=== PATIENT | female | born 1940 | race Caucasian/White ===

== ENCOUNTER 2021-07-22 19:41 | Emergency (ER) | payer OTHER ==
[~2021-07-22] VITALS: Ht 154.9 cm; Wt 77.1 kg
--- NOTE | ~2021-07-22 | EMS ---
[place] [id number] EMS Patient Care Report Name: AYAN OSMAN Room #: PRE M.R.#: [id number] Admission: Attend Phys: Discharge: Date of : 42 Report #: [id number] THIS REPORT FOR: //name// Report Transmitted: 07/22/2021 19:08 EMS Care Summary [place], [place]/[facility] Incident [id number] @ 07/22/2021 18:50 Incident Location [address] [place] [address] Patient AYAN RODRIGUEZ Female, 80 Years 1940 Patient Address [address] [place] [address] Patient History Chronic Obstructive Pulmonary Disease (COPD),Hypothyroidism, Patient Allergies Penicillin allergy,Morphine, Patient Medications Oxycodone, Spironolactone, Metoprolol, Levothyroxine, Tamsulosin, Gabapentin, Metformin, Atorvastatin, Allopurinol, Mirtazapine, Lorazepam, Albuterol, Xarelto, Furosemide, Chief Complaint LOWER BACK/ BOTTOM PAIN Disposition Transported No Lights/Leo Dispatch [place] [address] EMS Patient Care Report Name: AYAN OSMAN Room #: [facility].Lynn.#: [id number] Admission: Attend Phys: Discharge: Date of : 42 Report #: [id number] UPON ARRIVAL PT SUPINE ON GROUND CONSCIOUS AND ALERT. PT HAD TRIPPED ON A CORD AND LOST HER BALANCE FALLING BACKWARDS. PT STATES SHE LANDED ON HER BOTTOM FIRST AND THEN FELL BACK AND HIT HER HEAD. PT DENIES ANY LOC. PT C/O LOWER BACK PAIN ON MOVEMENT. PT STATES SHE HAS A LITTLE PAIN TO THE BACK OF HER HEAD ONLY WHEN PALPATED AND WHEN ASKED IF SHE HAS ANY NECK PAIN SHE SAYS BARELY. C-COLLAR APPLIED AND PT CARRIED TO COT VIA FOUNDRY MOLDER. PT TRANSPORTED. DURING TRANSPORT PT STATES SHE HAS TROUBLE BREATHING WITH THE C-COLLAR AND AND IT IS CAUSING HER MORE PAIN WITH IT ON. PT ADVISED IT IS BEST IF IT STAYS ON TO PREVENT ANY FURTHER INJURY. PT STATES SHE WANTS IT TAKEN OFF AND THAT HER NECK FEELS FINE. TRY TO CONVINCE PT TO LEAVE IT ON AGAIN BUT SHE WANTS IT OFF SO IT IT REMOVED. Initial Vitals @19:26P: 93,SpO2: 82, @19:31P: 95,SpO2: 84, @19:22P: 87,SpO2: 82, @19:29P: 95,SpO2: 82, @19:14SpO2: 95, @19:15P: 90,R: 20,BP: 109/57,Pain: 8/10,GCS: 15,SpO2: 98,Revised Trauma: 12, @19:33P: 91,R: 20,BP: 112/59,GCS: 15,SpO2: 98,Revised Trauma: 12, Assessments @19:07MENTAL:Person Oriented,Place Oriented,Time Oriented,Event Oriented,SKIN:HEENT:Head/Face: No Abnormalities,Neck/Airway: No Abnormalities,LUNG SOUNDS:General: No Abnormalities,ABDOMEN:General: No Abnormalities,PELVIS//GI:No Abnormalities,EXTREMITIES:Left Arm: No Abnormalities,Right Arm: No Abnormalities,Left Leg: No Abnormalities,Right Leg: No Abnormalities,PULSE:Radial: 2+ Normal,NEURO:No Abnormalities, Impression Injury of Lower Back Procedures @19:07ALS AssessmentResponse: UnchangedSucceeded@19:10Spinal Motion RestrictionResponse: WorseSucceeded@19:153-Lead ECGResponse: UnchangedSucceeded Timeline 18:48,Call Received 18:48,Dispatch Notified 18:50,Dispatched 18:52,En Route 19:04,On Scene 19:06,At Patient 19:07,ALS Assessment,Response: UnchangedSucceeded, 19:10,Spinal Motion Restriction,Response: WorseSucceeded, 19:14,BP: / M,PULSE: ,RR: R,SPO2: 95 Ox,ETCO2: ,BG: ,PAIN: ,GCS: , 19:15,3-Lead ECG,Response: UnchangedSucceeded, [facility] [address] [place] [address] EMS Patient Care Report Name: AYAN OSMAN E Room #: [facility] M.R.#: [id number] Admission: Attend Phys: Discharge: Date of : 42 Report #: [id number] 19:15,BP: 109/57 M,PULSE: 90,RR: 20 R,SPO2: 98 Ox,ETCO2: ,BG: ,PAIN: 8,GCS: 15, 19:18,Depart Scene 19:22,BP: / M,PULSE: 87,RR: R,SPO2: 82 Ox,ETCO2: ,BG: ,PAIN: ,GCS: , 19:26,BP: / M,PULSE: 93,RR: R,SPO2: 82 Ox,ETCO2: ,BG: ,PAIN: ,GCS: , 19:29,BP: / M,PULSE: 95,RR: R,SPO2: 82 Ox,ETCO2: ,BG: ,PAIN: ,GCS: , 19:31,BP: / M,PULSE: 95,RR: R,SPO2: 84 Ox,ETCO2: ,BG: ,PAIN: ,GCS: , 19:33,BP: 112/59 M,PULSE: 91,RR: 20 R,SPO2: 98 Ox,ETCO2: ,BG: ,PAIN: ,GCS: 15, 19:35,At Destination 19:54,Call Closed Disclaimer v1.1 Copyright 2020 [employer] This EMS Care Summary contains data elements from the applicable legal record (which may be displayed differently). It is designed to provide pertinent information for the following purposes: continuity of care, clinical quality, and state data reporting. The complete legal record is available to ED staff and administrators of the receiving hospital in [employer]'s Patient Tracker. All data is provided "as is."
[2021-07-22 19:59] LABS: ABSOLUTE NEUTROPHILS 8.1 thou/uL (1.4-8.2); BASOPHILS 0.6 % (0.0-2.0); EOSINOPHILS 0.6 % (0.0-3.0); HEMATOCRIT 45.6 % (37.0-47.0); HEMOGLOBIN 15.1 gm/dL (12.0-15.0); LYMPHOCYTES 9.8 % (24.0-44.0); MCH 33.6 pg (26.0-34.0); MCHC 33.2 g/dL (28.0-37.0); MCV 101.3 fL (80.0-100.0); MONOCYTES 9.5 % (1.0-8.0); PLATELET COUNT 119 thou/uL (150-400); POLYS 79.5 % (36.0-66.0); RDW 14.2 % (10.5-14.5); WBC 10.2 thou/uL (4.0-11.0)
[2021-07-22 20:09] LABS: CALCIUM 8.4 mg/dL (8.5-10.1); CREATININE 1.5 mg/dL (0.6-1.0); POTASSIUM 4.6 mmol/L (3.5-5.1)
[2021-07-22 21:41] LABS: URINE BILIRUBIN NEGATIVE (Negative); URINE BLOOD 1+ (Negative); URINE CLARITY CLEAR; URINE COLOR YELLOW; URINE GLUCOSE-RANDOM* NEGATIVE (Negative); URINE KETONES NEGATIVE (Negative); URINE LEUKOCYTES-REFLEX NEGATIVE (Negative); URINE NITRITE-REFLEX NEGATIVE (Negative); URINE PROTEIN (DIPSTICK) NEGATIVE (Negative); URINE UROBILINOGEN 0.2 E.U./dl (0.2-1.0)
[2021-07-22 21:58] LABS: BACTERIA-REFLEX 1-9 Few /HPF (None Seen); CASTS None Seen /LPF (None Seen); CRYSTALS None Seen /LPF (None Seen); MUCUS 0-3 Light strn/LPF (None Seen); SQUAMOUS 0-3 Few /LPF (0-3); URINE RBC 3-10 Few /HPF (NONE SEEN); URINE WBC-REFLEX 0-5 Rare /HPF (0-5)
[2021-07-23 01:05] VITALS: BP 112/54
== END 2021-07-23 01:05 | disposition home or self-care (01) ==
LOC: ER 19:41
PROVIDERS: Nurse Practitioner
DX: S00.93XA Contusion of unspecified part of head, initial encounter (principal); M54.50 Low back pain, unspecified; Z86.718 Personal history of other venous thrombosis and embolism; W10.9XXA Fall (on) (from) unspecified stairs and steps, initial encounter; Y93.89 Activity, other specified; Y92.89 Other specified places as the place of occurrence of the external cause; Y99.8 Other external cause status

== ENCOUNTER 2021-07-27 11:41 | Inpatient (IN) | payer OTHER ==
[~2021-07-27] VITALS: Ht 152.4 cm; Wt 73.6 kg
--- NOTE | ~2021-07-27 | EMS ---
[address] [address] EMS Patient Care Report Name: AYAN RODRIGUEZ Room #: REG ANGELA Razo#: [id number] Admission: 07/27/21 Attend Phys: Discharge: Date of : 42 Report #: [id number] THIS REPORT FOR: //name// Report Transmitted: 07/27/2021 12:49 EMS Care Summary [place], [place]/[facility] Incident [id number] @ 07/27/2021 11:02 Incident Location [address] [place], [place] [id number] Patient AYAN RODRIGUEZ Female, 80 Years 1940 Patient Address [address] [place], [place] [id number] Patient History Chronic Obstructive Pulmonary Disease (COPD),Hypothyroidism, Patient Allergies Penicillin allergy,Morphine, Patient Medications Levothyroxine, Atorvastatin, Lorazepam, Albuterol, Tamsulosin, Metformin, Allopurinol, Metoprolol, Gabapentin, Oxycodone, Furosemide, Xarelto, Mirtazapine, Spironolactone, Chief Complaint increased confusion Disposition Transported No Lights/[place] Dispatch Reason Breathing Problem Transported To [address] [address] EMS Patient Care Report Name: AYAN RODRIGUEZ Room #: REG ANGELA Razo#: [id number] Admission: 07/27/21 Attend Phys: Discharge: Date of : 42 Report #: [id number] pt found seated in bed, alert, mildly confused, on home . she was dx w/ Covid 4 days ago. the nurse saw her today and recommend she be seen in the ER for increased confusion, weakness and work of breathing. the pt does not want to go to hosp but finally agrees when told her family is requesting the transport. pt c/o general aches and pains. she is able to stand and pivot to cot. staff reports pt is afebrile. VS, transport w/o change. Initial Vitals @11:24P: 80,R: 20,BP: 130/80,Pain: 6/10,GCS: 14,Glucose: 122,SpO2: 95,Revised Trauma: 12, Assessments @11:19MENTAL:Confused,Person Oriented,Place Oriented,SKIN:No Abnormalities,HEENT:Head/Face: No Abnormalities,LUNG SOUNDS:ABDOMEN:PELVIS//GI:EXTREMITIES:Right Leg: Other,Left Arm: Other,Left Leg: Other,Right Arm: Other,PULSE:NEURO:Other, Impression Confusion/Delirium Procedures @11:19 ALS Assessment Response: Unchanged @11:22 Stretcher Response: Unchanged @PTAOxygen FlowRate: 5 Device: Nasal Cannula (NC) Response: Unchanged @11:24 3-Lead ECG Response: Unchanged Timeline SOUNDING DEVICE OPERATOR,Oxygen FlowRate: 5 Device: Nasal Cannula (NC) Response: Unchanged 11:00,Call Received 11:00,Dispatch Notified 11:02,Dispatched 11:03,En Route 11:16,On Scene 11:19,At Patient 11:19,ALS Assessment,Response: Unchanged 11:22,Stretcher,Response: Unchanged 11:24,BP: 130/80 M,PULSE: 80,RR: 20 R,SPO2: 95 Ox,ETCO2: ,B,PAIN: 6,GCS: 14, 11:24,3-Lead ECG,Response: Unchanged 11:25,Depart Scene 11:38,At Destination 12:03,Call Closed Disclaimer v1.1 Copyright 2020 [employer] [facility] [address] [place] [address] EMS Patient Care Report Name: AYAN RODRIGUEZ Room #: REG ANGELA Razo#: [id number] Admission: 07/27/21 Attend Phys: Discharge: Date of : 42 Report #: [id number] This EMS Care Summary contains data elements from the applicable legal record (which may be displayed differently). It is designed to provide pertinent information for the following purposes: continuity of care, clinical quality, and state data reporting. The complete legal record is available to ED staff and administrators of the receiving hospital in [facility]'s Patient Tracker. All data is provided "as is."
[2021-07-27 11:45] VITALS: BP 125/65
[2021-07-27 12:32] LABS: BE(vivo) 2.4 mmol/L (-2 to +3); HCO3 25.8 mmol/L (22.0-26.0); PCO2 36.3 mmHg (35.0-45.0); PO2 67.9 mmHg (80.0-100.0); sO2 94.7 % (92.0-98.0)
[2021-07-27 12:34] LABS: ABSOLUTE NEUTROPHILS 6.7 thou/uL (1.4-8.2); BASOPHILS 0.4 % (0.0-2.0); HEMATOCRIT 48.4 % (37.0-47.0); LYMPHOCYTES 8.1 % (24.0-44.0); MCH 33.6 pg (26.0-34.0); MCHC 33.1 g/dL (28.0-37.0); MCV 101.3 fL (80.0-100.0); PLATELET COUNT 136 thou/uL (150-400); POLYS 84.5 % (36.0-66.0); RBC 4.78 mil/uL (4.20-5.00); RDW 14.6 % (10.5-14.5); WBC 7.9 thou/uL (4.0-11.0)
[2021-07-27 12:35] LABS: URINE BILIRUBIN NEGATIVE (Negative); URINE BLOOD TRACE (Negative); URINE CLARITY CLEAR; URINE COLOR YELLOW; URINE GLUCOSE-RANDOM* NEGATIVE (Negative); URINE KETONES NEGATIVE (Negative); URINE LEUKOCYTES-REFLEX NEGATIVE (Negative); URINE NITRITE-REFLEX NEGATIVE (Negative); URINE PROTEIN (DIPSTICK) 1+ (Negative)
[2021-07-27 12:56] LABS: CALCIUM 8.8 mg/dL (8.5-10.1); CREATININE 1.2 mg/dL (0.6-1.0); POTASSIUM 4.2 mmol/L (3.5-5.1)
[2021-07-27] MEDS ORDERED: ACETAMINOPHEN325 MG PO (12:59)
[2021-07-27] MEDS ORDERED: PREDNISONE 10 M10 MG PO (13:00)
[2021-07-27] MEDS ORDERED: AZITHROMYCIN 2250 MG PO (13:00)
[2021-07-27 13:01] LABS: TOTAL BILIRUBIN 0.7 mg/dL (0.2-1.0); TOTAL PROTEIN 7.3 g/dL (6.4-8.2)
[2021-07-27] MEDS ORDERED: OXYCODONE-APAP1 TAB PO (13:02)
[2021-07-27] MEDS ORDERED: XARELTO10 M1 PO (13:02)
[2021-07-27] MEDS ORDERED: PROAIR HFA8.5 GM INH (13:02)
[2021-07-27] MEDS ORDERED: ALLOPURINOL 10100 M1 PO (13:02)
[2021-07-27] MEDS ORDERED: LIPITOR 40 MG T40 M1 PO (13:03)
[2021-07-27] MEDS ORDERED: BISACODYL10 MG RECTAL (13:03)
[2021-07-27] MEDS ORDERED: GABAPENTIN600 M1 PO (13:03)
[2021-07-27] MEDS ORDERED: FUROSEMIDE 40 M40 M1 PO (13:03)
[2021-07-27] MEDS ORDERED: LEVOTHYROXINE88 MCG PO (13:03)
[2021-07-27] MEDS ORDERED: METOPROLOL TART25 MG PO (13:04)
[2021-07-27] MEDS ORDERED: METFORMIN HCL500 MG PO (13:04)
[2021-07-27 13:06] LABS: BACTERIA-REFLEX 1-9 Few /HPF (None Seen); SQUAMOUS 0-3 Few /LPF (0-3); URINE RBC 1-2 Rare /HPF (NONE SEEN); URINE WBC-REFLEX 0-5 Rare /HPF (0-5)
[2021-07-27 13:07] LABS: CASTS None Seen /LPF (None Seen); CRYSTALS None Seen /LPF (None Seen)
[2021-07-27] MEDS ORDERED: REMERON 30 MG T30 M1 PO (13:18)
[2021-07-27] MEDS ORDERED: POTASSIUM CHLO10 ME1 PO (13:18)
[2021-07-27] MEDS ORDERED: SPIRONOLACTONE50 MG PO (13:19)
[2021-07-27] MEDS ORDERED: SULFACETAMIDE 115 M1 OPHTHALMIC (13:21)
[2021-07-27] MEDS ORDERED: TAMSULOSIN HCL0.4 MG PO (13:21)
--- NOTE | 2021-07-27 14:48 | EKG ---
[place] [address] [facility] [place] [address] ELECTROCARDIOGRAM REPORT Name: AYAN RODRIGUEZ Room #: 170-9 ADM IN M.R.#: [id number] Admission: 07/27/21 Attend Phys: Pankaj Jose MD Discharge: Date of : 42 Report #: [id number] [facility] ED Test Date: 2021-07-27 Test Time: 11:53:52 Pat Name: AYAN RODRIGUEZ Department: Room: 170 Gender: F Customer Experience Leader: AYAAN : 1940 Requested By: Andre Michael Order Number: [id number] MD: Jose Pugh Measurements Intervals [place] Rate: 101 P: 36 ME: 173 QRS: -57 QRSD: 117 T: 118 QT: 360 QTc: 467 Interpretive Statements Atrial-sensed ventricular-paced rhythm No further analysis attempted due to paced rhythm No previous ECG available for comparison Electronically Signed On 07-27-2021 14:48:43 CDT by Jose Pugh [email or web address] <ELECTRONICALLY SIGNED> By: Jose Pugh MD, [facility] 07/27/21 1448 1153 1153 Jose Pugh MD, FACC /EPI
[2021-07-27 14:51] VITALS: BP 113/69
--- NOTE | 2021-07-27 14:51 | NUR ---
HANDOFF TOOL SENT AT THIS TIME
[2021-07-27 15:00] VITALS: BP 136/61
[2021-07-27 15:50] VITALS: BP 110/56
--- NOTE | 2021-07-27 18:12 | NUR ---
ADMISSION NOTE: PT ADMITTED TO ROOM 351, ALERT AND ORINETD X2. DENIES ANY CHEST PAIN, NAUSEA AND VOMITTING. SEEMS TO BE FORGETFUL AND LETHARGIC BUT AROUSABLE. 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 NOT A GOOD HISTORIAN, CALLED PT GRAND DAUGHTER WHO HELPED WITH PT ADMISSION. ASSESSMENT COMPLETED WELL. SKIN INTACT. IINCONTINENT. FALL PRECAUTIONS IN PLACE, UNABLE TO SIGNED CONSENT DUE TO AMS. ENHANCED ISOLATION IN PLACE. FALL PREC. IN PLACE. WILL CONTINUE TO MONITOR
[2021-07-27 19:15] VITALS: BP 124/64
--- NOTE | 2021-07-27 22:05 | NUR ---
PROVIDER CALLED RE ST HEART RATE, AV PACED, WHILE PT IS AT REST. 02 PER NC 6L. SHARED HOME MED LIST INFO AND HS MEDS GIVEN.
--- NOTE | 2021-07-28 00:36 | NUR ---
PT RESTING IN BED. CONFUSED ALERT TO SELF AND SITUATION. O2 PER NC. PT IS A MOUTH BREATHER. PT COMPLIANT WITH MEDS AND HS SNACK. PALE SKIN TONE. WHEEZES, CRACKLES. BLE EDEMA. GRANDDAUGHTER CALLED FOR UPDATE. PROVIDER CONTACTED RE HR AND HOME MED ORDERED AND PROVIDED. BED ALARM ON.
[2021-07-28 01:36] VITALS: BP 144/66
[2021-07-28 05:58] LABS: HEMATOCRIT 45.9 % (37.0-47.0); HEMOGLOBIN 15.3 gm/dL (12.0-15.0); MCH 33.4 pg (26.0-34.0); MCHC 33.2 g/dL (28.0-37.0); MCV 100.5 fL (80.0-100.0); RBC 4.57 mil/uL (4.20-5.00); RDW 14.6 % (10.5-14.5); WBC 6.4 thou/uL (4.0-11.0)
[2021-07-28 06:13] LABS: CALCIUM 8.7 mg/dL (8.5-10.1); CREATININE 1.1 mg/dL (0.6-1.0); POTASSIUM 4.3 mmol/L (3.5-5.1)
[2021-07-28 07:36] VITALS: BP 141/76
--- NOTE | 2021-07-28 14:15 | NUR ---
PT CARE ASSUMED THIS AM, ALERT AND ORIENTED X2. CONFUSED AND FORGETFUL AT TIMES. PT DENIES ANY CHEST PAIN, NAUSEA OR VOMITTING. CONTINUE TO BE ON 6L OF OXYGEN, PT BASELINE IS 2-6L AT FACILITY. GOT PT UP IN THE CHAIR. UP TO BSC WITH 1 ASSIST. CHAIR ALARM ON. FALL AND ENHANCED PRECAUTIONS ARE IN PLACE. PT GRANDDAUGHTER CALLED AND UPDATED ABOUT CARE
[2021-07-28 15:50] VITALS: BP 118/51
--- NOTE | 2021-07-28 16:59 | NUR ---
Case opened to follow for dc planning. Pt is currently in enhanced ISO Covid + on 3W. She tested positive at her TRUE [facility] [phone] on 07/21/21 however she was sent to our ER on 07/22 due to a fall and her rapid was negative. The facility did not get her +pcr test results back until 07/23. Pt was exposed by positive family members including her gdtr/dpoa Diony. Concrete Panel Installer spoke with Mariano as well as the DON at [facility]. The pt recently moved (07/16/21)to their TRUE apts from LTC at [facility] where she has been living since rehabing from a hip fx in December of this year. She was reportedly on 4.5 liters of o2 (but has a concentrator that goes to 10 liters) and was indep with a rwalker. She does have SBA with dressing and bathing. They manage her meals and medications. The pt did have the J/J covid vacine in December 2020 and has had her flu shot recently. Her gdtr does has a dpoa document if needed and she believes it covers both health care and finances. They are hopeful she can return directly to her [facility] apt may be with HH. They do not want to do snf unless [facility] feels they can not care for her. Mariano reports she is out of ISO now as she is 10 days out from her onset of symptoms and she is vaccinated. She is calling the unit for updates. She requested f/u call from Lorelei in the ER regarding missing jewlery and alert pendent from the LONGTERM. Message left for Lorelei to f/u with both the gdtr and the TRUE. Security contacted and they do not have any of these items in the safe or lost and found. The pt is confused at times and utilzing 6liters of o2. PT/OT evals in progress. Will follow for possible hh or snf referrals pending her progress.
[2021-07-28 20:26] VITALS: BP 121/60
[2021-07-29 03:29] VITALS: BP 112/82
[2021-07-29 06:35] LABS: HEMATOCRIT 44.8 % (37.0-47.0); HEMOGLOBIN 14.9 gm/dL (12.0-15.0); MCH 33.4 pg (26.0-34.0); MCHC 33.2 g/dL (28.0-37.0); MCV 100.6 fL (80.0-100.0); RBC 4.45 mil/uL (4.20-5.00); RDW 14.4 % (10.5-14.5); WBC 13.4 thou/uL (4.0-11.0)
[2021-07-29 06:47] LABS: CALCIUM 8.6 mg/dL (8.5-10.1); CREATININE 0.9 mg/dL (0.6-1.0); POTASSIUM 4.4 mmol/L (3.5-5.1)
[2021-07-29 07:40] VITALS: BP 138/107
--- NOTE | 2021-07-29 08:22 | NUR ---
PROGRESS PT ALERT BUT CONFUSED, ANXIOUS. C/O OF RIGHT HIP PAIN TAKING OXYCODONE WITH EFFECT. VSS. SLEPT AFTER OXYCODONE. CONTINUE POC.
--- NOTE | 2021-07-29 13:38 | NUR ---
PT DPZEUS FLORA, GRANDDAUGHTER, REQUESTS THAT PT PHONE BE TAKEN AWAY FROM HER DUE TO OVERCALLING AND INTERRUPTING. PT DPZEUS STATES SHE HAD BEEN TAKING LORAZEPAM BY MOUTH WHEN SHE IS NOT IN THE HOSPITAL. THIS RN WILL UPDATE PT NURSE.
[2021-07-29] MEDS ORDERED: ATIVAN0.5 M1 PO (14:04)
[2021-07-29 15:08] VITALS: BP 112/82
[2021-07-29 19:30] VITALS: BP 120/79
[2021-07-30] VITALS (16 sets, daily range): BP systolic 106–165; BP diastolic 52–97
--- NOTE | 2021-07-30 01:05 | NUR ---
PT REPEATEDLY GETTING OOB DURING CHANGE OF SHIFT, NOT REDIRECTABLE, TAKING OFF O2, STATING SHE WAS GOING TO GO BUY A CELL PHONE AND CLEAN THE COUNTERS. PT NOT ABLE TO REMEMBER REDIRECTION. PROVIDED CONTACTED AND PRN PROVIDED FOR AGIATION. PT COMPLIANT WITH HS SNACK. BED ALARM ON. LUNGS COARSE, PALE SKIN TONE. GRANDDAUGHTER CALLED AND UPDATE PROVIDED. DPOA WANTS COGNITIVE TESTS DONE, PT WAS LIVING IN [place]. PT GOT OOB TO USE RESTROOM AND WAS GOING TO URINATE IN CHAIR.
--- NOTE | 2021-07-30 03:51 | NUR ---
CONTINUES TO GET OOB, YELLING TO GO HOME, WANTING TO TAKE HER EVENING MEDS, BUT WHEN OFFERED PO PRN REFUSED. OFTEN AWAKENS AND FORGETTING IN HOSPITAL. BED ALARM REMAINS ON.
--- NOTE | 2021-07-30 04:51 | NUR ---
PT CONTINUES TO GET OOB, DEMANDING TO GO HOME OR TO THE HOSPITAL. DEMANDING HER HOME MEDS AND THEN REFUSING MEDS OFFERED. SCREAMING. TAKING OFF OXYGEN. THREATENING TO CALL THE POLICE TO GO TO THE HOSPITAL. PT ASSISTED WITH CALLING HER GRANDDAUGHTER. PROVIDER CALLED AND PRN FOR AGIATATION ORDER GIVEN.
[2021-07-30 08:55] LABS: HEMATOCRIT 48.4 % (37.0-47.0); HEMOGLOBIN 15.9 gm/dL (12.0-15.0); MCH 33.2 pg (26.0-34.0); MCHC 32.9 g/dL (28.0-37.0); MCV 100.8 fL (80.0-100.0); RBC 4.79 mil/uL (4.20-5.00); RDW 13.9 % (10.5-14.5); WBC 12.2 thou/uL (4.0-11.0)
--- NOTE | 2021-07-30 09:02 | HC ---
[facility] [place] [address] CONSULTATION Name: AYAN RODRIGUEZ Room #: 351-P ADM IN M.R.#: [id number] Admission: 07/27/21 Attend Phys: Pankaj Jose MD Discharge: Date of : 42 Report #: [id number] THIS REPORT FOR: cc: Best Payton MD, Christopher B. MD Barry, Joseph W. MD ~ DATE OF SERVICE: 07/29/2021 INFECTIOUS DISEASE CONSULTATION ATTENDING PHYSICIAN: Dr. Jose. REASON FOR EVALUATION: COVID-19 infection, complicated by pneumonitis, respiratory failure in a patient with chronic underlying lung disease, which at baseline requires supplemental oxygen. HISTORY OF PRESENT ILLNESS: Chart reviewed. Patient examined. A 80-year-old lives in an assisted living facility, who was noted to be increasingly encephalopathic and lethargic. It is notable she has underlying dementia apparently. She concerns about progressive illness. She was referred to the Emergency Room. Initial ABG showed a pH of 7.47, pCO2 of 36.3, pO2 of 67.9 on 5 liters. Coronavirus testing was positive. Lactic acid 1.5. Urinalysis was generally unremarkable. Procalcitonin less than 0.05. Chest x-ray showed moderate bilateral, mid and lower lung partially consolidative infiltrates, cardiomegaly. Blood cultures collected at the time of admission are sterile thus far. It is notable that she is normally on 2-6 liters per nasal cannula, currently on 6 liters. She was empirically started on remdesivir, given azithromycin and ceftriaxone. ALLERGIES: PENICILLINS, MORPHINE. CURRENT MEDICATIONS: Include mirtazapine, lorazepam, levothyroxine, atorvastatin, tamsulosin, zinc, cholecalciferol, thiamine, oxycodone, ascorbic acid, benzonatate, famotidine, metoprolol, methylprednisolone 0.5 mg IV q. 8, enoxaparin, sliding scale insulin and remdesivir. PAST MEDICAL HISTORY: As described above, O2 requiring COPD, history of DVTs, hypertension, has a cardiomyopathy with congestive heart failure, diabetes mellitus, bipolar, depression, dementia. SOCIAL HISTORY: Former smoker, no ethanol, no illicit drug use. FAMILY HISTORY: Noncontributory. REVIEW OF SYSTEMS: Otherwise, unremarkable. Denies any fevers, chills or GI-related complaints. [facility] [address] [place] [address] CONSULTATION Name: AYAN RODRIGUEZ Room #: 351-P [facility] IN M.R.#: [id number] Admission: 07/27/21 Attend Phys: Pankaj Jose MD Discharge: Date of : 42 Report #: [id number] PHYSICAL EXAMINATION: GENERAL: She appears somewhat chronically ill. She is pleasant. She is mildly encephalopathic. VITAL SIGNS: Temperature 97.8, pulse 107, respirations 18, blood pressure 138/101. SKIN: Warm and dry, no rashes. HEENT: Normocephalic. Extraocular muscles intact. Nasal cannula in place, 6 liters. NECK: Supple. LUNGS: Diminished overall. Scattered coarse sounds primarily at the bases. HEART: Regular, tachycardic. I do not appreciate a murmur. ABDOMEN: Mildly distended, somewhat firm, nontender. EXTREMITIES: No cyanosis. GENITOURINARY AND RECTAL: Deferred. LABORATORY DATA: Electrolytes: Sodium 137, potassium 4.4, chloride 104, bicarbonate 21, anion gap of 12, BUN and creatinine 25 and 0.9, glucose of 166. Blood cultures sterile thus far. CBC: White count 13.4, H and H 14.9 and ____, platelets of 160. Coronavirus testing was positive. ASSESSMENT AND PLAN: COVID-19 infection, complicated by pneumonitis and respiratory failure. The patient has underlying significant chronic obstructive pulmonary disease. She remains quite tenuous at this point. We will continue remdesivir, corticosteroids and vitamins. She is not overtly toxic. We will add incentive spirometry. ____ complications or concerns. <ELECTRONICALLY SIGNED> By: Jose Clayton MD 07/30/21 0902 1341 1432 Jose Clayton MD /nt
[2021-07-30 09:21] LABS: ALBUMIN 2.5 g/dL (3.4-5.0); CALCIUM 8.7 mg/dL (8.5-10.1); CREATININE 0.8 mg/dL (0.6-1.0); DIRECT BILIRUBIN 0.2 mg/dL (<0.1-0.2); PHOSPHORUS 3.4 mg/dL (2.6-4.7); POTASSIUM 4.4 mmol/L (3.5-5.1); TOTAL BILIRUBIN 0.8 mg/dL (0.2-1.0); TOTAL PROTEIN 6.2 g/dL (6.4-8.2)
[2021-07-30] MEDS ORDERED: QUETIAPINE FUMA25 MG PO (10:32)
--- NOTE | 2021-07-30 16:41 | NUR ---
GUERO reviewed chart and spoke with nursing and attending physician. Pt remains in Enhanced Isolation due to COVID. Pt is afebrile. Pt was on 6L of O2 earlier today and had to be placed on 15L due to not keeping the O2 on. Pt is on IV steroids and Remdesivir. No weekend discharge planned. GUERO left voice message for the pulp grinder at [facility] to provide update and discuss plan for pt to return to the facility when medically stable for discharge. GUERO spoke with pt's granddtr/DPOA, Mariano, via phone to provide update. Family is hoping pt is able to return to [facility] with HH services. Pt's home O2 is provided by [employer] and can go up to 10L if needed. GUERO is following to assist as needed with discharge planning.
--- NOTE | 2021-07-30 17:04 | NUR ---
assumed care of pt at 0700. pt confused and impulsive. weaned down to 6L but constantly removing o2, now requiring 15L NC. RT drawing blood gas now. constantly trying to get out of bed by herslef despite antipsychotics. all fall precautions in place. gtdr waiting on update with blood gas results.
[2021-07-30 17:11] LABS: BE(vivo) 0 mmol/L (-2 to +3); HCO3 21.1 mmol/L (22.0-26.0); PCO2 26.3 mmHg (35.0-45.0); pH 7.523 (7.360-7.450); sO2 82.5 % (92.0-98.0)
[2021-07-30 17:12] LABS: PO2 40.6 mmHg (80.0-100.0)
--- NOTE | 2021-07-30 17:54 | NUR ---
critical blood gas. refusing to wear optiflow. becoming more agitated. family tried speaking with patient over phone. physician notified. to transfer icu antoine.
--- NOTE | 2021-07-30 19:25 | NUR ---
Patient arrived from [facility] to ICU at 1815 accompanied by nursing staff and RT. Pt confused, agitated, pulling nonrebreather out of the face constantly. Pt crying, yelling to quit apply oxygen mask on her face. Pt was immediately placed on restraints. pt was tachycardic to 150's. Stat EKG was ordered. Pt was started on Precedex gtt. Manzanares catheter was placed as pt complaining of not been able to urinate. pt was offered bedpan but pt did not go. Report was given to OK Fitch in the shift superintendent caustic cresylate. Dr. Khan was made aware about pt being transferred to ICU and asked if any tests or orders are further required.
--- NOTE | 2021-07-30 20:39 | NUR ---
This RN consulted Dr. Armstrong regarding patient status. Orders to start Bipap and will continue to monitor.
--- NOTE | 2021-07-30 21:38 | NUR ---
This RN talked with yayo Quintana and MAGAN regarding patient condition at 2137. Discussed bipap and possible intubation. MAGAN understands and wants patient to be intubated if needed. Will continue to monitor.
[2021-07-31] VITALS (43 sets, daily range): BP systolic 79–155; BP diastolic 40–69
[2021-07-31 00:05] LABS: BE(vivo) -3.3 mmol/L (-2 to +3); HCO3 20.6 mmol/L (22.0-26.0); PCO2 34.1 mmHg (35.0-45.0); PO2 365.1 mmHg (80.0-100.0); sO2 99.8 % (92.0-98.0)
--- NOTE | 2021-07-31 01:29 | NUR ---
This RN, Dr. Armstrong and RT Saundra and other nursing staff intubated patient at 2320. OG tube placed. Dr. Armstrong placed a right IJ triple lumen catheter. Began patient on fentanyl and propofol gtt. OG tube placed. This RN spoke to MAGAN Beasley and oliver at 0030 to discuss post intubation.
[2021-07-31 02:46] LABS: URINE BILIRUBIN NEGATIVE (Negative); URINE BLOOD 2+ (Negative); URINE CLARITY SL CLOUDY; URINE COLOR YELLOW; URINE GLUCOSE-RANDOM* NEGATIVE (Negative); URINE KETONES NEGATIVE (Negative); URINE LEUKOCYTES 2+ (Negative); URINE NITRITE NEGATIVE (Negative); URINE PROTEIN (DIPSTICK) TRACE (Negative); URINE SPECIFIC GRAVITY 1.025 (1.005-1.035); URINE UROBILINOGEN 0.2 E.U./dl (0.2-1.0)
[2021-07-31 02:59] LABS: CASTS None Seen /LPF (None Seen); MUCUS None Seen strn/LPF (None Seen); SQUAMOUS None Seen /LPF (0-3); URINE WBC 6-15 Few /HPF (NONE SEEN)
[2021-07-31 03:00] LABS: BACTERIA None Seen /HPF (None Seen); CRYSTALS None Seen /LPF (None Seen); URINE RBC 3-10 Few /HPF (NONE SEEN)
[2021-07-31 05:09] LABS: ALBUMIN 2.2 g/dL (3.4-5.0); CALCIUM 8.2 mg/dL (8.5-10.1); DIRECT BILIRUBIN 0.2 mg/dL (<0.1-0.2); POTASSIUM 3.8 mmol/L (3.5-5.1); TOTAL BILIRUBIN 0.7 mg/dL (0.2-1.0); TOTAL PROTEIN 5.4 g/dL (6.4-8.2)
[2021-07-31 05:30] LABS: HEMATOCRIT 42.1 % (37.0-47.0); MCHC 32.6 g/dL (28.0-37.0); MCV 101.2 fL (80.0-100.0); RBC 4.16 mil/uL (4.20-5.00); RDW 14.2 % (10.5-14.5); WBC 6.2 thou/uL (4.0-11.0)
[2021-07-31 05:33] LABS: HEMOGLOBIN 13.7 gm/dL (12.0-15.0)
--- NOTE | 2021-07-31 08:24 | EKG ---
[address] [place] [address] ELECTROCARDIOGRAM REPORT Name: AYAN RODRIGUEZ Room #: 236-P ADM IN M.R.#: [id number] Admission: 07/27/21 Attend Phys: Pankaj Jose MD Discharge: Date of : 42 Report #: [id number] [facility] Test Date: 2021-07-30 Test Time: 18:34:06 Pat Name: AYAN RODRIGUEZ Department: Room: 236 Gender: F Professor Of Criminal Justice: FSCHWALBE : 1940 Requested By: Pankaj Jose Order Number: [id number] MD: Jose Pugh Measurements Intervals [place] Rate: 149 P: 49 [place]: 70 QRS: -68 QRSD: 150 T: 107 QT: 342 QTc: 539 Interpretive Statements Ventricular-paced complexes, suspect AFIB No further rhythm analysis attempted due to paced rhythm Left bundle branch block Compared to ECG 07/27/2021 11:53:52 Atrial-sensed ventricular-paced complex(es) or rhythm no longer present Electronically Signed On 07-31-2021 8:24:22 CDT by Jose Pugh [email or web address] <ELECTRONICALLY SIGNED> By: Jose Pugh MD, FACC 07/31/21 [phone] Jose Pugh MD, [facility] /EPI
--- NOTE | 2021-07-31 15:07 | NUR ---
PT INTUBATED AND SEDATED ON PRECEDEX, FENTYNL, PROPOFOL GTT'S. VENT SETTING CHANGED BY RT. ETT PULLED BACK 1 CM BY RT, CXR TO CONFIRM PLACEMENT. PT AFEBRILE, ADEQUATE UOP, NO BM, DIETARY REFERAL IN PLACE FOR TUBE FEED RECS. PT WITH TRIPLE LUMEN SUBCLAVIAN IN PLACE AND FUNCTIONING WELL. OGT TO LIS WITH DARK BROWN/BLACK OUTPUT. WHEN I CAME ONTO SHIFT THE PRECEDING NURSE SAID THAT PRECEDEX WAS NEEDED DURING THE NIGHT BUT IT WAS TURNED OFF DURING REPORT BUT THE BAG WAS SPIKED AND HUNG IF IT IS TO BE NEEDED. APPROX 1400 PT BECAME EXTREMELY AGITATED AND PRECEDEX WAS INIATED, UPON SCANNING PRECEDEX I NOTICED THAT THIS BAG HAD NEVER BEEN SCANNED TO BEGIN OF STOP. I SCANNED THIS BAG (WHICH HAD VERY LITTLE VOLUME LEFT IN BAG) AND DID A HOLD ACKNOWLEDGE FOR A NEW BAG. PHARMACY IS AWARE OF THIS. PT AND FAMILY HAVE BEEN THOUROUGHLY UPDATED AND EDUCATED ON PT CONDITION AND POC. PT SLOWLY PROGRESSING TOWARDS POC. PT A/V PACED AND NO VASOPRESSORS WERE NEEDED.
--- NOTE | 2021-07-31 22:27 | NUR ---
AGITATED AND SITS UP WHEN TOUCHED OR TRACH SUCTIONED/ ORAL CARE DONE. INCREASED THE PROPOFOL TO 40 MCQ/ KG/MIN. BLOOD PRESSURE REMAINS STABLE SYSTOLIC IN THE 150'S.
--- NOTE | 2021-07-31 23:01 | NUR ---
SPOKE WITH GRANDDAUGHTER. SHE IS JUST CHECKING IN. UPDATED HER ON CONDITION OF PATIENT. SHE WAS VERY APPRECIATIVE AND KIND. PT CONTINUES TO HAVE DARK THICK DRAINAGE FROM NASOGASTRIC TUBE. NO SIGNS OF PAIN. SHE IS RELAXED AN CALM WITH MEDICATION INFUSING
[2021-08-01] VITALS (40 sets, daily range): BP systolic 118–169; BP diastolic 52–75
[2021-08-01 05:29] LABS: HEMATOCRIT 42.4 % (37.0-47.0); MCH 33.5 pg (26.0-34.0); MCV 101.4 fL (80.0-100.0); RBC 4.18 mil/uL (4.20-5.00); RDW 14.3 % (10.5-14.5); WBC 6.8 thou/uL (4.0-11.0)
[2021-08-01 05:38] LABS: ALBUMIN 2.1 g/dL (3.4-5.0); CALCIUM 8.3 mg/dL (8.5-10.1); CREATININE 0.9 mg/dL (0.6-1.0); DIRECT BILIRUBIN 0.2 mg/dL (<0.1-0.2); PHOSPHORUS 4.5 mg/dL (2.5-4.9); POTASSIUM 3.6 mmol/L (3.5-5.1); TOTAL BILIRUBIN 0.4 mg/dL (0.2-1.0); TOTAL PROTEIN 5.2 g/dL (6.4-8.2)
--- NOTE | 2021-08-01 13:35 | NUR ---
PT FOUND ON FENTANYL, PRECEDEX, AND PROPOFOL. SPECIAL ISOLATION FOR COVID AIR, DROPLET, AND CONTACT MAINTAINED. D5W @ 80 STARTED PER ORDER PLAN IS TO START FEEDS AFTER A NUTRITION CONSULT. PT ON CLR AND TURN Q2H. PT GRANDAUGHTER UPDATED.
--- NOTE | 2021-08-01 21:01 | NUR ---
Updated pt's DPOA Ms.Corrie Alvarado per her requested.
[2021-08-02] VITALS (50 sets, daily range): BP systolic 90–162; BP diastolic 44–76
[2021-08-02 04:14] LABS: BE(vivo) -1.9 mmol/L (-2 to +3); HCO3 22.3 mmol/L (22.0-26.0); PCO2 36.7 mmHg (35.0-45.0); PO2 75.2 mmHg (80.0-100.0); pH 7.402 (7.360-7.450); sO2 95.2 % (92.0-98.0)
[2021-08-02 05:29] LABS: ABSOLUTE NEUTROPHILS 7.7 thou/uL (1.4-8.2); HEMATOCRIT 38.6 % (37.0-47.0); HEMOGLOBIN 12.9 gm/dL (12.0-15.0); LYMPHOCYTES 3.1 % (24.0-44.0); MCH 33.8 pg (26.0-34.0); MCHC 33.3 g/dL (28.0-37.0); MCV 101.3 fL (80.0-100.0); MONOCYTES 3.6 % (1.0-8.0); PLATELET COUNT 154 thou/uL (150-400); POLYS 93.3 % (36.0-66.0); RBC 3.81 mil/uL (4.20-5.00); RDW 14.2 % (10.5-14.5); WBC 8.3 thou/uL (4.0-11.0)
[2021-08-02 05:46] LABS: ALBUMIN 1.8 g/dL (3.4-5.0); ANION GAP 10 mmol/L (7-16); BUN 23 mg/dL (7-18); CHLORIDE 109 mmol/L (98-107); CO2 23 mmol/L (21-32); CREATININE 0.6 mg/dL (0.6-1.0); DIRECT BILIRUBIN < 0.1 mg/dL (<0.1-0.2); GLUCOSE 236 mg/dL (74-106); PHOSPHORUS 3.2 mg/dL (2.5-4.9); POTASSIUM 3.7 mmol/L (3.5-5.1); SGOT 16 U/L (15-37); SGPT 10 U/L (30-65); SODIUM 142 mmol/L (136-145); TOTAL BILIRUBIN 0.2 mg/dL (0.2-1.0); TOTAL PROTEIN 4.8 g/dL (6.4-8.2)
--- NOTE | 2021-08-02 07:51 | NUR ---
Pt TRANSFERRED TO ICU. WILL PLACE ON HOLD AND AWAIT NEW ORDERS WHEN APPROPRIATE
--- NOTE | 2021-08-02 08:34 | NUR ---
PATIENT TRANSFERRED TO ICU, WILL PLACE ON HOLD. NEED NEW ORDERS ONCE MEDICALLY APPROPRIATE.
--- NOTE | 2021-08-02 13:55 | NUR ---
Chart review, discussed during loc with the hospitalist and during unit rounds. Vent, 50% FIO2, peep 8, COVID +. Enhanced isolation. Visited with granddaughter quintin. Intro to cm and dcp. Sherry was independent prior hip fx, then went to skilled rehab and then recently moved to the [facility], not on memory care unit. Quintin concerned about changes in her grandma memory decline since covid. Will cont following as needed for dc needs.
--- NOTE | 2021-08-02 19:23 | NUR ---
ASSUMED CARE OF PT AT 1900. PT SEDATED AND INTUBATED. PT VERY RESTLESS WITH TACTILE STIMULATION. DPOA, FLORA, UPDATED MULTIPLE TIMES THROUGHOUT DAY. SEDATEION TITRATED DOCUMENTED.
[2021-08-03] VITALS (79 sets, daily range): BP systolic 45–129; BP diastolic 18–77
[2021-08-03 04:02] LABS: CALCIUM 8.2 mg/dL (8.5-10.1); CREATININE 0.9 mg/dL (0.6-1.0); POTASSIUM 3.9 mmol/L (3.5-5.1)
[2021-08-03 04:57] LABS: HEMATOCRIT 40.5 % (37.0-47.0); HEMOGLOBIN 13.5 gm/dL (12.0-15.0); MCH 33.4 pg (26.0-34.0); MCHC 33.4 g/dL (28.0-37.0); MCV 100.3 fL (80.0-100.0); RBC 4.04 mil/uL (4.20-5.00); RDW 14.3 % (10.5-14.5); WBC 17.8 thou/uL (4.0-11.0)
--- NOTE | 2021-08-03 06:17 | NUR ---
INTERMITTENT DEOXYGENATION ISSUES OVERNIGHT. VENTILATOR SETTINGS INCREASED- SEE CHARTING. PT DOES NOT FOLLOW COMMANDS BUT WILL OPEN EYES WHEN STIMULATED.
[2021-08-03 10:13] LABS: MAGNESIUM 2.2 mg/dL (1.8-2.4)
--- NOTE | 2021-08-03 11:52 | EKG ---
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
[2021-08-03 15:51] LABS: BE(vivo) -10.4 mmol/L (-2 to +3); HCO3 17.3 mmol/L (22.0-26.0); PCO2 45.4 mmHg (35.0-45.0); PO2 63.2 mmHg (80.0-100.0)
[2021-08-03 15:52] LABS: pH 7.199 (7.360-7.450)
--- NOTE | 2021-08-03 17:06 | NUR ---
PT BP WAS LOW WITH SHUBHAM 55. RN READJUSTED BP CUFF AND RETOOK BP. NEXT BP HAS MAP 41 AT 1545. RN CALLED DR LEWIS. STARTED PT ON A NS BOLUS AND LEVO GTT. PT ALSO RECIEVE AN AMP OF BICARB AND IS NOW GETTING ALBUMIN. PT BP NOW 93/46 HR 102, SATTING 95%. PT HAD A CRITICAL ABG DRAWN WHEN BP DROPPED. PT RECEIVED A STAT CHEST XRAY AND CBC DRAWN. PROPOFOL WAS TURNED OFF WHEN PT BP WAS 80S/30S. DR LEWIS STARTED VERSED FOR SEDATION SINCE PATIENT WAS RESTLESS WITH JUST PRECEDEX AND FENTANYL GTT. PT NOW IS CALM. WILL CONTINUE TO MONITOR PATIENT.
[2021-08-03 18:41] LABS: HEMATOCRIT 27.9 % (37.0-47.0); MCH 32.4 pg (26.0-34.0); MCHC 31.7 g/dL (28.0-37.0); MCV 102.4 fL (80.0-100.0); RBC 2.73 mil/uL (4.20-5.00); RDW 14.6 % (10.5-14.5); WBC 26.3 thou/uL (4.0-11.0)
[2021-08-03 19:01] LABS: HEMOGLOBIN 8.8 gm/dL (12.0-15.0)
[2021-08-03 19:18] LABS: BE(vivo) -4.9 mmol/L (-2 to +3); HCO3 21.2 mmol/L (22.0-26.0); PCO2 43.8 mmHg (35.0-45.0); PO2 85.2 mmHg (80.0-100.0); pH 7.302 (7.360-7.450); sO2 95.5 % (92.0-98.0)
[2021-08-04] VITALS (22 sets, daily range): BP systolic 56–137; BP diastolic 11–103
[2021-08-04 02:16] LABS: BE(vivo) -12.8 mmol/L (-2 to +3); HCO3 15.9 mmol/L (22.0-26.0); PCO2 53.1 mmHg (35.0-45.0); PO2 123.9 mmHg (80.0-100.0); pH 7.095 (7.360-7.450)
[2021-08-04 03:44] LABS: CALCIUM 6.5 mg/dL (8.5-10.1); CREATININE 1.4 mg/dL (0.6-1.0); POTASSIUM 4.8 mmol/L (3.5-5.1)
--- NOTE | 2021-08-04 06:07 | NUR ---
DR LEWIS CALLED AROUND 2104 FOR CLARIFICATION TO GIVE METOPROLOL. PRESSOR REQUIREMENTS INCREASED THROUGHOUT SHIFT. DR LEWIS CALLED AT 0 TO OBTAIN ABG ORDER BASED ON PT CONDITION. DR LEWIS OKAY TO GET ABG. ABG OBTAINED AND DR LEWIS CALLED WITH RESULTS. ORDERS RECIEVED FOR BICARB PUSHES AND GTT. RESTRAINTS REMOVED AROUND 329. PT CODED AT 0407. TOCaden CALLED AT 0427.
== END 2021-08-04 04:27 | DRG 207 ==
LOC: ER 11:41 → EROBS 14:11 → 3W 14:11 → ICU 07-30 18:10
PROVIDERS: Hospitalist; Internal Medicine Pulmonary Disease; Nurse Practitioner; Pediatrics; ADMIT Hospitalist; ATTEND Hospitalist
PROC: XW033E5 Introduction of Remdesivir Anti-infective into Peripheral Vein, Percutaneous Approach, New Technology Group 5 (ICD-10-PCS; principal; 2021-07-29)
PROC: 5A0935A Assistance with Respiratory Ventilation, Less than 24 Consecutive Hours, High Flow/Velocity Cannula (ICD-10-PCS; principal; 2021-07-29)
PROC: 5A09357 Assistance with Respiratory Ventilation, Less than 24 Consecutive Hours, Continuous Positive Airway Pressure (ICD-10-PCS; 2021-07-30)
PROC: 5A0935A Assistance with Respiratory Ventilation, Less than 24 Consecutive Hours, High Flow/Velocity Cannula (ICD-10-PCS; 2021-07-30)
PROC: 02HV33Z Insertion of Infusion Device into Superior Vena Cava, Percutaneous Approach (ICD-10-PCS; 2021-07-30)
PROC: B548ZZA Ultrasonography of Superior Vena Cava, Guidance (ICD-10-PCS; 2021-07-30)
PROC: 5A1955Z Respiratory Ventilation, Greater than 96 Consecutive Hours (ICD-10-PCS; 2021-07-31)
PROC: 0BH17EZ Insertion of Endotracheal Airway into Trachea, Via Natural or Artificial Opening (ICD-10-PCS; 2021-07-31)
PROC: 5A12012 Performance of Cardiac Output, Single, Manual (ICD-10-PCS; 2021-08-04)
DX: U07.1 COVID-19 (principal); J80 Acute respiratory distress syndrome; J12.82 Pneumonia due to coronavirus disease 2019; G93.40 Encephalopathy, unspecified; I42.9 Cardiomyopathy, unspecified; J44.0 Chronic obstructive pulmonary disease with (acute) lower respiratory infection; E11.9 Type 2 diabetes mellitus without complications; F32.9 Major depressive disorder, single episode, unspecified; F41.9 Anxiety disorder, unspecified; R41.0 Disorientation, unspecified; I48.91 Unspecified atrial fibrillation; I95.9 Hypotension, unspecified; I11.0 Hypertensive heart disease with heart failure; Z66 Do not resuscitate; I46.9 Cardiac arrest, cause unspecified; Z88.6 Allergy status to analgesic agent; Z86.718 Personal history of other venous thrombosis and embolism; Z88.0 Allergy status to penicillin; Z95.0 Presence of cardiac pacemaker
CPT/HCPCS: 10078; 10080; 10196; 50455